=== PATIENT | female | born 1995 | race Caucasian/White ===

== ENCOUNTER 2018-01-06 09:58 | Emergency (ER) | payer OTHER ==
--- NOTE | 2018-01-06 11:05 | EKG ---
Test Date: 2018-01-06 Test Time: 10:10:36 Supervisor Electron Tube Processing: MERCEDES MEASUREMENT RESULTS: Intervals: Rate: 62 NH: 126 QRSD: 80 QT: 402 QTc: 408 [place]: P: 47 NH: 126 QRS: 88 T: 53 INTERPRETIVE STATEMENTS: Normal sinus rhythm Normal ECG No previous ECG available for comparison Electronically Signed On 01-06-18 11:05:12 CDT by Tyree Gomez
[2018-01-06 11:06] LABS: Urine Blood TRACE (NEG); Urine Glucose NEGATIVE (NEG); Urine Protein NEGATIVE (NEG); Urine Specific Gravity 1.015 (1.005-1.030); Urine pH 7.5 (5.0-7.0)
[2018-01-06 11:31] LABS: Absolute Lymphocytes (CBC) 2.2 K/uL (0.7-4.9); Absolute Monocytes 0.5 K/uL (0.1-1.3); Absolute Neutrophil 6.1 K/uL (1.8-8.0); Basophils % 0.4 % (0-1.3); Eosinophils % 1.3 % (0-4.4); Hematocrit 40.7 % (36.0-45.0); Lymphocytes % 24.7 % (15.3-44.8); MCH 29.2 pg (27.0-35.0); MCV 88.2 fL (80-100); Monocytes % 6.1 % (3.3-12.3); RBC Red Blood Cell Count 4.62 M/uL (3.86-4.86)
[2018-01-06 11:32] LABS: Bicarbonate 27 mEq/L (21-31); Glucose Level 95 mg/dL (65-120); Potassium 3.9 mEq/L (3.6-5.0); Sodium Level 139 mEq/L (135-145)
[2018-01-06 11:33] LABS: BUN Blood Urea Nitrogen 10 mg/dL (6-20)
--- NOTE | 2018-01-06 11:50 | RAD REPORT ---
EXAM DESCRIPTION: Kristyn Stewart (2 Views)01/06/2018 11:45 am CLINICAL HISTORY: Chest pain COMPARISON: none FINDINGS: The lungs appear clear of acute infiltrate. The heart is normal size IMPRESSION: No acute abnormalities displayed
--- NOTE | 2018-01-06 12:21 | EDPHYS ---
Physician Documentation [facility] Name: Bev Bowens Age: 22 yrs Sex: Female : 1995 Arrival Date: 01/06/2018 Time: 10:03 Bed 19 Private MD: ED Physician Delmer Pierre HPI: 01/06 12:24 This 22 yrs old Female presents to ER via Ambulatory with complaints of Chest gs Pain. 12:24 The patient or guardian reports chest pain that is located primarily in the substernal gs area, anterior chest wall. The pain radiates to the right scapula. Associated signs and symptoms: Pertinent negatives: diaphoresis, dizziness, headache. The chest pain is described as dull, a heaviness. Duration: The patient or guardian reports multiple episodes, that wax and wane, with no pattern, the episodes last approximately 5 minute(s). Modifying factors: The symptoms are alleviated by nothing. the symptoms are aggravated by nothing. Severity of pain: At its worst the pain was moderate in the emergency department the pain has resolved and did so earlier today. The patient has not experienced similar symptoms in the past. The patient has not recently seen a physician. 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 - Social history:: Smoking status: Patient/guardian denies using tobacco, Patient/guardian denies using alcohol. - Family history:: pertinent for heart disease. ROS: 12:24 All other systems are negative. gs Exam: 12:24 Head/Face: Normocephalic, atraumatic. Eyes: Pupils equal round and reactive to light, gs extra-ocular motions intact. Lids and lashes normal. Conjunctiva and sclera are non-icteric and not injected. Cornea within normal limits. Periorbital areas with no swelling, redness, or edema. ENT: Nares patent. No nasal discharge, no septal abnormalities noted. Tympanic membranes are normal and external auditory canals are clear. Oropharynx with no redness, swelling, or masses, exudates, or evidence of obstruction, uvula midline. Mucous membranes moist. Neck: Trachea midline, no thyromegaly or masses palpated, and no cervical lymphadenopathy. Supple, full range of motion without nuchal rigidity, or vertebral point tenderness. No Meningismus. Chest/axilla: Normal chest wall appearance and motion. Nontender with no deformity. No lesions are appreciated. Abdomen/GI: Soft, non-tender, with normal bowel sounds. No distension or tympany. No guarding or rebound. No evidence of tenderness throughout. Back: No spinal tenderness. No costovertebral tenderness. Full range of motion. Skin: Warm, dry with normal turgor. Normal color with no rashes, no lesions, and no evidence of cellulitis. MS/ Extremity: Pulses equal, no cyanosis. Neurovascular intact. Full, normal range of motion. Neuro: Awake and alert, GCS 15, oriented to person, place, time, and situation. Cranial nerves II-XII grossly intact. Motor strength 5/5 in all extremities. Sensory grossly intact. Cerebellar exam normal. Normal gait. 12:24 Constitutional: The patient appears alert, awake. 12:24 Cardiovascular: Rate: normal, Rhythm: regular, Pulses: no pulse deficits are appreciated, Heart sounds: normal. 12:24 ECG was reviewed by the Attending Physician. 12:24 Respiratory: the patient does not display signs of respiratory distress, Respirations: normal, Breath sounds: are clear throughout. Vital Signs: 10:07 BP 103 / 66; Pulse 80; Resp 18; Temp 98.4(TE); Pulse Ox 99% on R/A; Weight 54.43 kg; hj Height 5 ft. 3 in. (160.02 cm); Pain 7/10; 11:14 BP 106 / 63; Pulse 64; Resp 17; Pulse Ox 100% on R/A; ae1 12:14 BP 96 / 72; Pulse 60; Resp 19; Pulse Ox 98% on R/A; ae1 10:07 Body Mass Index 21.26 (54.43 kg, 160.02 cm) MDM: 10:59 Patient medically screened. 12:24 Differential diagnosis: acute myocardial infarction, coronary artery disease pulmonary gs embolus. Differential diagnosis: chest wall pain. Data reviewed: vital signs, nurses notes. 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 Response to treatment: the patient's symptoms have resolved after treatment, and as a result, I will discharge patient. 12:24 HEART Score: History: Slightly Suspicious (0), ECG: Normal (0), Age: < or = 45 years gs (0), Risk Factors: No Risk Factors Known (0), Troponin: < or = 1 x Normal Limit (0). 01/06 10:36 Order name: Urine Dipstick--Ancillary (enter results); Complete Time: 11:54 01/06 10:36 Order name: Urine --Ancillary (enter results); Complete Time: 11:54 01/06 11:01 Order name: Basic Metabolic Panel; Complete Time: 11:54 01/06 11:01 Order name: CBC with Diff; Complete Time: 11:54 01/06 11:01 Order name: Troponin (emerg Dept Use Only); Complete Time: 11:54 01/06 11:01 Order name: D-Dimer; Complete Time: 11:54 01/06 11:01 Order name: EKG; Complete Time: 11:02 01/06 11:01 Order name: Cardiac monitoring; Complete Time: 11: 01/06 11:01 Order name: EKG - Nurse/Tech; Complete Time: 11: 01/06 11:01 Order name: IV Saline Lock; Complete Time: 11: 01/06 11:01 Order name: Labs collected and sent; Complete Time: 11: 01/06 11:01 Order name: O2 Per Protocol; Complete Time: 11: 01/06 11:01 Order name: O2 Sat Monitoring; Complete Time: 11: 01/06 11:01 Order name: XRAY Chest Pa And Lat (2 Views); Complete Time: 11:54 01/06 11:01 Order name: Urine Dipstick-Ancillary (obtain specimen); Complete Time: 11:09 gs EC:24 Rate is 62 beats/min. Rhythm is regular. AL interval is normal. QRS interval is normal. gs QT interval is normal. T waves are Flattened in lead III. No ST changes noted. Clinical impression: NSR w/ Non-specific ST/T Changes. Interpreted by me. Administered Medications: No medications were administered Disposition: 01/06/18 12:19 Discharged to Home. Impression: Chest pain, unspecified. - Condition is Stable. - Discharge Instructions: Nonspecific Chest Pain, Nonspecific Chest Pain, [id number]. - Medication Reconciliation Form, Thank You Letter, Antibiotic Education, Prescription Opioid Use form. - Follow up: Tyree Gomez MD; When: 2 - 3 days; Reason: Re-evaluation by your physician. Signatures: Dispatcher [employer] EDFL Ramiro Mcmillan, RN RN hj Shon Lewis RN RN ae1 Delmer Pierre MD MD gs Corrections: (The following items were deleted from the chart) 12:31 12:19 01/06/2018 12:19 Discharged to Home. Impression: Chest pain, unspecified. ae1 Condition is Stable. Forms are Medication Reconciliation Form, Thank You Letter, Antibiotic Education, Prescription Opioid Use. Follow up: Tyree Gomez; When: 2 - 3 days; Reason: Re-evaluation by your physician. gs
--- NOTE | 2018-01-06 12:21 | ER ---
Nurse's Notes [facility] Name: Bev Bowens Age: 22 yrs Sex: Female : 1995 Arrival Date: 01/06/2018 Time: 10:03 Bed 19 Private MD: Diagnosis: Chest pain, unspecified Presentation: 01/06 10:04 Presenting complaint: Patient states: Saturday and Saturday with abd pain; last night i hj was awaken with severe chest pain; this AM i had another episode today at around 7 am; pain is radiating from front ot back; sharp type of pain; family hx of heart disease; denies SOB;. Transition of care: patient was not received from another setting of care. Onset of symptoms was January 06, 2018. Initial Sepsis Screen: Does the patient meet any 2 criteria? No. Patient's initial sepsis screen is negative. Does the patient have a suspected source of infection? No. Patient's initial sepsis screen is negative. Care prior to arrival: None. 10:04 Method Of Arrival: Ambulatory 10:04 Acuity: JANETH 3 Triage Assessment: 10:06 General: Appears in no apparent distress. uncomfortable, Behavior is calm, cooperative, hj appropriate for age. Pain: Complains of pain in chest Pain radiates to back Pain currently is 7 out of 10 on a pain scale. Quality of pain is described as sharp, Pain began 2-3 days ago. Is intermittent. Cardiovascular: Capillary refill < 3 seconds Patient's skin is warm and dry. 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 - Social history:: Smoking status: Patient/guardian denies using tobacco, Patient/guardian denies using alcohol. - Family history:: pertinent for heart disease. Screenin:50 Abuse screen: Denies threats or abuse. Nutritional screening: No deficits noted. ae1 Tuberculosis screening: No symptoms or risk factors identified. Fall Risk None identified. Assessment: 11:10 Reassessment: Patient denies pain at this time, but had pain that woke her from sleep ae1 this morning prior to arrival. General: Appears in no apparent distress. comfortable, slender, well groomed, Behavior is calm, cooperative. Pain: Denies pain. Neuro: Level of Consciousness is awake, alert, obeys commands, Oriented to person, place, time, situation. Cardiovascular: Patient's skin is warm and dry. Respiratory: Airway is patent Respiratory effort is even, unlabored, relaxed, Respiratory pattern is regular, symmetrical, Breath sounds are clear bilaterally. GI: No signs and/or symptoms were reported involving the gastrointestinal system. : No signs and/or symptoms were reported regarding the genitourinary system. EENT: No signs and/or symptoms were reported regarding the EENT system. Derm: Skin is pink, warm \T\ dry. Musculoskeletal: No signs and/or symptoms reported regarding the musculoskeletal system. 11:14 Reassessment: Patient appears in no apparent distress at this time. Patient and/or ae1 family updated on plan of care and expected duration. Pain level reassessed. 12:16 Reassessment: Patient appears in no apparent distress at this time. Patient and/or ae1 family updated on plan of care and expected duration. Pain level reassessed. Patient states feeling better. Vital Signs: 10:07 BP 103 / 66; Pulse 80; Resp 18; Temp 98.4(TE); Pulse Ox 99% on R/A; Weight 54.43 kg; hj Height 5 ft. 3 in. (160.02 cm); Pain 7/10; 11:14 BP 106 / 63; Pulse 64; Resp 17; Pulse Ox 100% on R/A; ae1 12:14 BP 96 / 72; Pulse 60; Resp 19; Pulse Ox 98% on R/A; ae1 10:07 Body Mass Index 21.26 (54.43 kg, 160.02 cm) ED Course: 10:03 Patient arrived in ED. rg4 10:06 Triage completed. hj 10:07 Arm band placed on right wrist. hj 10:15 EKG done, by pharmaceutical development technician. reviewed by Jacky Barahona MD. at1 10:25 Delmer Pierre MD is Attending Physician. gs 10:26 Shon Lewis, SAURABH is Primary Nurse. ae1 10:32 Urine collected: clean catch specimen, clear, pedro colored. jb1 10:50 Placed in gown. Bed in low position. Call light in reach. Side rails up X 1. Adult w/ ae1 patient. monitoring specialist on. Pulse ox on. NIBP on. 10:50 Inserted saline lock: 20 gauge in right Blood collected. Patient maintains SpO2 ae1 saturation greater than 95% on room air. 11:45 XRAY Chest Pa And Lat (2 Views) In Process Unspecified. EDMS 12:16 No provider procedures requiring assistance completed. ae1 12:18 Tyree Gomez MD is Referral Physician. gs 12:31 IV discontinued, intact, bleeding controlled, No redness/swelling at site. Pressure ae1 dressing applied. Administered Medications: No medications were administered Outcome: 12:19 Discharge ordered by MD. gs 12:30 Discharged to home ambulatory. ae1 12:30 Condition: stable 12:30 Discharge instructions given to patient, family, Instructed on discharge instructions, follow up and referral plans. Demonstrated understanding of instructions. 12:31 Patient left the ED. ae1 Signatures: Dispatcher [employer] EDMS Venancio King jb1 China selby, silk snapper EKG Tat1 Ramiro Mcmillan, SAURABH RN Shon Lewis RN RN ae1 Tala Reyez rg4 Delmer Pierre MD MD Corrections: (The following items were deleted from the chart) 10:10 10:07 Pulse 80bpm; Resp 18bpm; Pulse Ox 99% RA; Temp 98.4F Temporal; 54.43 kg; Height 5 hj ft. 3 in.; BMI: 21.2; Pain 7/10; hj
== END 2018-01-06 12:31 | disposition home or self-care (01) ==
LOC: ER 09:58
DX: R07.9 Chest pain, unspecified (principal)
CPT/HCPCS: 36415; 71046; 80048; 81003; 81025; 84484; 85025; 85379; 93005; 99285